=== PATIENT | male | born 1940 | race Caucasian/White ===

== ENCOUNTER 2017-07-30 11:02 | Outpatient (CLI) | payer SELFPAY ==
--- NOTE | 2017-07-30 12:52 | RAD ---
RADIOGRAPH LEFT RIBS 4 VIEWS: DATE: 07/30/17. HISTORY: A 77-year-old male with persistent posttraumatic left rib pain after fall 2 weeks ago. COMPARISON: None. FINDINGS: There is diffuse osteopenia. There is a compression fracture of the T12 vertebral body with asymmetr ic greater compression of the right side than the left, visualized on frontal projection. There is d iffuse osteopenia. No displaced rib fracture is identified. IMPRESSION: 1. Compression fracture of T12, of unknown age. 2. No left rib fracture identified. POS: DIOR
== END 2017-07-30 11:03 | disposition home or self-care (01) ==
LOC: MERGE 11:02 → RAD 11:02
PROVIDERS: ATTEND Physical Medicine & Rehabilitation
DX: R07.81 Pleurodynia (principal); Z87.81 Personal history of (healed) traumatic fracture

== ENCOUNTER 2019-12-11 19:01 | Inpatient (IN) | payer MEDICARE, OTHER ==
--- NOTE | 2019-12-11 20:41 | RAD ---
Radiograph left hip 2 views: 12/11/2019 8:25 PM HISTORY: 79-year-old male with persistent left hip pain after fall 2 weeks ago. COMPARISON: None available FINDINGS: There is a femoral neck fracture with impaction and foreshortening, comminution, and approximately on e third bone width lateral displacement of main distal fragment. These are all visualized on the frontal view. The lateral view is nondiagnostic because of overlap of multiple structures. IMPRESSION: Traumatic, displaced, comminuted fracture of the left femoral neck
[2019-12-11 20:46] LABS: #Eosinphils 0.3 thou/uL (0.0-0.7); #Lymphocytes 1.5 thou/uL (1.20-3.40); #Monocytes 1.3 thou/uL (0.11-0.59); #Neutrophils 10.4 thou/uL (1.40-6.50); %Basophils 0.2 % (0.0-1.0); %Eosinophils 2.2 % (0.0-10.0); %Lymphocytes 11.2 % (21.0-51.0); %Monocytes 9.6 % (0.0-10.0); %Neutrophils 76.8 % (42.0-75.0); Hemoglobin 12.7 g/dL (14.0-18.0); Mean Corpuscular HGB CONC 31.9 g/dL (32.0-36.0); Mean Corpuscular Hemoglobin 27.9 pg (27.0-31.0); Mean Corpuscular Volume 87.5 fL (78.0-98.0); Mean Platelet Volume 8.6 fL (7.4-10.4); Platelet Count 220 thou/uL (130-400); RBC Distribution Width 14.7 % (11.5-14.5); Red Blood Cell (RBC) Count 4.57 mill/uL (4.70-6.10); White Blood Cell (WBC) Count 13.5 thou/uL (4.8-10.8)
[2019-12-11 21:07] LABS: Anion Gap 13 mmol/L (10-20); BUN (Urea Nitrogen) 17 mg/dL (8.4-25.7); Calc. Creatinine Clearance 0 mL/min (70-130); Calcium 8.3 mg/dL (7.8-10.44); Carbon Dioxide 25 mmol/L (23-31); Chloride 104 mmol/L (98-107); Estimated GFR-MDRD 90; Glucose 178 mg/dL (83-110); Potassium 3.6 mmol/L (3.5-5.1); Sodium 138 mmol/L (136-145)
--- NOTE | 2019-12-11 21:12 | CT ---
CT BRAIN NONCONTRAST: DATE: 12/11/2019 HISTORY: 79-year-old male status post acute head trauma from fall FINDINGS: There is no evidence of acute intra-axial or extra-axial hemorrhage. There is no midline shift or any other mass effect. There is no extra-axial fluid collection. There is no evidence of obstructive hydrocephalus. Calvarium is intact. There is diffuse brain parenchymal volume loss. There are low att enuation areas in the white matter. These are nonspecific, but in a patient of this age, they are probably chronic ischemic white matter changes due to microvascular atherosclerosis. There are multip le tiny and small old lacunar infarctions in the bilateral cerebellar hemispheres, left thalamus, bilateral basal ganglia, and bilateral caudate nuclei. No interval change overall compared to 019. IMPRESSION: 1) No acute intracranial findings. 2) advanced involutional changes and high-grade chronic ischemic white matter changes. 3) multiple small and tiny old lacunar infarctions in deep luna nuclei and bilateral cerebellum
--- NOTE | 2019-12-11 21:14 | CT ---
CT CERVICAL SPINE NONCONTRAST: DATE: 12/11/2019 HISTORY: cervical trauma. 8-year-old male status post fall FINDINGS: There are no jumped or perched facets. There is no evidence of acute fracture. The vertebral body hei ghts are maintained. There is no prevertebral soft tissue swelling. There are degenerative disc changes and facet osteoarthrosis. IMPRESSION: 1) Cervical spondylosis. 2) no evidence of acute fracture or acute traumatic subluxation.
[2019-12-11 21:46] LABS: Bilirubin Negative (Negative); Blood, Urine Negative (Negative); Clarity Clear (Clear); Glucose, Urine (Dipstick) Normal (Negative); Ketone, Urine Negative (Negative); Leukocyte Negative Leu/uL (Negative); Nitrite Negative (Negative); Protein, Urine (Dipstick) 20 mg/dL (Neg-Trace); Specific Gravity, Urine 1.027 (1.002-1.036); Urobilinogen 3 mg/dL (Less than 2)
--- NOTE | 2019-12-11 22:11 | RAD ---
RADIOGRAPH CHEST 1 VIEW: DATE: 12/11/2019 HISTORY: 79-year-old male for preoperative clearance FINDINGS: The thoracic aorta is very tortuous and ectatic, unchanged since 11/15/2018. There is no evidence of a irspace density, pulmonary edema, or pneumothorax. The lateral costophrenic angles are not effaced. There are multiple left anterolateral displaced lower rib fractures with callus. These ribs are poorl y visualized on the prior study. IMPRESSION: 1) No acute pulmonary findings. 2) severe tortuosity and ectasia of thoracic aorta. Cannot rule out aneurysm. 3) multiple healing left rib fractures
[2019-12-11 22:17] LABS: Magnesium 1.7 mg/dL (1.6-2.6); Phosphorus 2.9 mg/dL (2.3-4.7)
[2019-12-11 22:18] LABS: INR-International Normal Ratio 1.3; PTT 48.9 sec (22.9-36.1); Prothrombin Time 16.5 sec (12.0-14.7)
[2019-12-11] MEDS ORDERED: Dextrose 50% Abboject 50 ML SYRINGE SLOW IVP PRN (22:22)
[2019-12-11] MEDS ORDERED: Morphine 2 MG/ML VIAL SLOW IVP PRN (22:22)
[2019-12-11] MEDS ORDERED: hydrALAZINE 20 MG/ML VIAL SLOW IVP PRN (22:22)
[2019-12-11] MEDS ORDERED: Dextrose 5% in Water 1,000 ML IV PRN (22:22)
[2019-12-11] MEDS ORDERED: Insulin Regular 300 UNITS/3 ML VIAL SC PRN ×2 (22:22)
[2019-12-11] MEDS ORDERED: Ondansetron PF 4 MG/2 ML Vial IVP PRN (22:22)
[2019-12-11] MEDS ORDERED: Acetaminophen/Codeine 30-300mg Tablet PO PRN (22:28)
[2019-12-11] MEDS ORDERED: Sodium Chloride 0.9% 1,000 ML IV SCH (22:45)
[2019-12-11] MEDS ORDERED: Magnesium 2 GM/50 ML 2 GM in Premix Bag 1 BAG IVPB SCH (22:45)
[2019-12-11] MEDS ORDERED: Potassium Phosphate 15 MMOL in Sodium Chloride 0.9% 250 ML 250 ML IVPB SCH (23:00)
[2019-12-12] MEDS ORDERED: Ipratropium Oral Inhaler INH PRN (00:13)
[2019-12-12] MEDS: Acetaminophen 325 MG TAB PO SCH ×4 (00:19→17:58)
--- NOTE | 2019-12-12 01:12 | HP ---
TRAUMA SURGEON: Baljeet Gamboa MD CONSULTING PHYSICIAN: Francisco J Alvarenga MD HISTORY OF PRESENT ILLNESS: The patient is a 79-year-old male, presented to the Emergency Department via EMS after he reported pain in his hip at his longterm. At that time, an x-ray was completed demonstrating a right femoral neck fracture, at which time, he was transferred here. Nursing at the facility reports no recent known trauma. They are unsure the exact mechanism and duration of the fracture. The patient has a history of dementia and CVA. He does not remember any fall and states his pain is controlled besides when moving. The patient reports he is usually able to stand and get in the wheelchair. He states he is able to ambulate, but does not. At the time of my evaluation, he had no complaints and no pain. He denied shortness of breath, chest pain, nausea, vomiting, diarrhea, and cough. The patient is on Plavix. He has a history of atrial fibrillation and CVA. REVIEW OF SYSTEMS: All additional 10-point review of systems negative except as indicated above. PAST MEDICAL HISTORY: CVA, hypertension, diabetes, BPH, COPD, dementia, insomnia, diabetic neuropathy, osteoarthritis, depression, Alzheimer's, macular degeneration, dysphagia, hyperlipidemia, and coronary artery disease. PAST SURGICAL HISTORY: Only documented history is previous back surgery. The patient is not oriented to medical history. SOCIAL HISTORY: The patient is a previous smoker. He lives in a longterm. MEDICATIONS: Include; 1. Scopolamine. 2. Tylenol. 3. Norvasc. 4. Plavix. 5. Glucagon. 6. Zofran. 7. Bisacodyl suppository. 8. Loperamide. 9. Milk of magnesia. 10. Namenda. 11. Gabapentin. 12. Atorvastatin. 13. Lipitor. 14. Zoloft. 15. Carvedilol. 16. Pantoprazole. 17. Alendronate sodium. 18. Aricept. 19. Flomax. 20. Vitamin D. 21. Vitamin C. 22. Zinc. 23. Guaifenesin liquid. 24. Keppra. 25. Hydroxyzine. 26. Ibuprofen. ALLERGIES: NO KNOWN DRUG ALLERGIES. PHYSICAL EXAMINATION: VITAL SIGNS: Temperature 98.8, pulse 70, respirations 18, oxygen saturation 100% on room air, and blood pressure 143/82. PRIMARY SURVEY: Airway intact. Adequate breath sounds bilaterally. 2+ pulses in the bilateral radials, femorals, and DPs. No lacerations, bruising, or external bleeding. SECONDARY SURVEY: HEAD: Normocephalic and atraumatic. No gross palpable skull deformities or tenderness. EYES: Pupils 3 to 2, equal, round, and reactive to light bilaterally. ENT: No signs of trauma. C-SPINE: No step-offs or deformity. Nontender. C-collar not in place. CHEST: Nontender. No crepitus. No abrasions or ecchymosis. Equal movement. ABDOMEN: Soft, nontender, and nondistended. PELVIS: Stable to palpation and nontender. No abrasions or ecchymosis. RECTAL: Deferred. GENITOURINARY: Deferred. EXTREMITIES: No gross deformities. No abrasions or ecchymosis noted. 2+ pulses in the bilateral radials, femorals, and DPs. BACK/SPINE: No step-offs or deformities or tenderness to palpation of the thoracic or lumbar spine. NEUROLOGIC: A 5/5 strength in bilateral entry clerk and right lower extremity. The patient has 3/5 strength and plantar flexion and dorsiflexion on the left lower extremity. GCS is 14 to 15, -1 for confusion occasionally. LABORATORY FINDINGS: White count 13.5, hemoglobin 12.7, hematocrit 40.0, and platelets 220. INR 1.3 and PTT 48.9. Sodium 138, potassium 3.6, chloride 104, bicarb 25, BUN 17, creatinine 0.83, glucose 178, phosphorus 2.9, and magnesium 1.7. Troponin 0.012. UA is negative for infection and blood. DIAGNOSTIC FINDINGS: CT of the brain demonstrates no acute intracranial findings advanced evolutional changes and high-grade chronic ischemic white matter changes, multiple small and tiny old lacunar infarcts and deep luna nuclei in bilateral cerebellum. X-ray of the left hip demonstrate traumatic displaced comminuted fracture of the left femoral neck. CT of the C-spine demonstrates cervical spondylosis. No evidence of acute fracture or acute traumatic subluxation. Chest x-ray demonstrates no acute pulmonary findings, severe tortuosity and ectasias of thoracic, aorta cannot rule out aneurysm. Multiple healing left rib fractures. ASSESSMENT: 1. Status post unknown trauma. 2. Left femoral neck fracture. 3. History of cerebrovascular accident, hypertension, diabetes, benign prostatic hyperplasia, chronic obstructive pulmonary disease, dementia, insomnia, diabetic neuropathy, depression, dysphagia, coronary artery disease, Alzheimer's disorder, and osteoporosis. PLAN: The patient will be admitted to the Trauma Service and go to the surgical nursing floor. The emergency room has consulted Dr. Alvarenga of Orthopedic Surgery for evaluation. He is considering operative intervention and we will make that determination tomorrow. He will have a diabetic diet that is pureed until midnight, for which he will be n.p.o., normal saline at 75 an hour for a total of 1 L. Replace potassium and phos p.r.n. and scheduled pain control. We will avoid tramadol as the patient is on Keppra. There is concern for possible seizure associated with tramadol. We will start the patient's home medications as clinically indicated. Postoperatively, the patient will likely be able to go back to his long term facility. Job ID: [id number]
[2019-12-12 03:08] LABS: #Eosinphils 0.3 thou/uL (0.0-0.7); #Lymphocytes 2.1 thou/uL (1.20-3.40); #Monocytes 1.2 thou/uL (0.11-0.59); #Neutrophils 7.1 thou/uL (1.40-6.50); %Basophils 0.2 % (0.0-1.0); %Eosinophils 2.9 % (0.0-10.0); %Lymphocytes 19.2 % (21.0-51.0); %Neutrophils 66.6 % (42.0-75.0); Hemoglobin 13.3 g/dL (14.0-18.0); Mean Corpuscular HGB CONC 32.9 g/dL (32.0-36.0); Mean Corpuscular Hemoglobin 28.3 pg (27.0-31.0); Mean Platelet Volume 8.5 fL (7.4-10.4); Platelet Count 217 thou/uL (130-400); RBC Distribution Width 14.9 % (11.5-14.5); White Blood Cell (WBC) Count 10.7 thou/uL (4.8-10.8)
[2019-12-12 03:23] LABS: Troponin I 0.018 ng/mL (< 0.028)
[2019-12-12 03:34] LABS: ALT (SGPT) 8 U/L (8-55); AST (SGOT) 11 U/L (5-34); Albumin 3.1 g/dL (3.4-4.8); Alkaline Phosphatase 97 U/L (40-110); Anion Gap 14 mmol/L (10-20); BUN (Urea Nitrogen) 14 mg/dL (8.4-25.7); Bilirubin, Total 0.7 mg/dL (0.2-1.2); Calc. Creatinine Clearance 100 mL/min (70-130); Calcium 8.3 mg/dL (7.8-10.44); Carbon Dioxide 25 mmol/L (23-31); Chloride 105 mmol/L (98-107); Estimated GFR-MDRD Greater than 90; Globulin 2.8 g/dL (2.4-3.5); Glucose 110 mg/dL (83-110); Magnesium 2.1 mg/dL (1.6-2.6); Potassium 3.7 mmol/L (3.5-5.1); Protein, Total 5.9 g/dL (5.8-8.1); Sodium 140 mmol/L (136-145)
[2019-12-12 03:35] LABS: Phosphorus 3.8 mg/dL (2.3-4.7)
[2019-12-12] MEDS: Ibuprofen 200 MG TAB PO SCH ×2 (07:21→17:58)
[2019-12-12] MEDS ORDERED: Potassium Phosphate 15 MMOL in Sodium Chloride 0.9% 250 ML 250 ML IVPB SCH (07:45)
[2019-12-12] MEDS: Carvedilol 6.25 MG TAB PO SCH (08:47)
[2019-12-12] MEDS: Famotidine/PF 20 mg/2ml Vial SLOW IVP SCH (08:51)
[2019-12-12] MEDS ORDERED: Polyethylene Glycol 3350 17 GM Packet PO SCH (09:00)
[2019-12-12] MEDS: Senokot S 8.6-50 MG TAB PO SCH (09:57)
[2019-12-12] MEDS: Atorvastatin Calcium 40 MG TAB PO SCH (09:57)
--- NOTE | 2019-12-12 10:04 | CON ---
DATE OF CONSULTATION: This is Marco A Petit PA-C dictating a report for Francisco J Alvarenga MD. HISTORY OF PRESENT ILLNESS: We were asked by Trauma to consult on this patient. The patient resides in a fci and was complaining of left hip pain secondary to fall a few weeks ago. X-rays were required. He was brought to our facility with a left hip fracture. Speaking with the patient, he is a little hard to understand, but I asked the patient if he had fallen before and he said "yes", two weeks ago, I said any falls prior to that, and again he said he has fallen. He has had a CVA and some dementia, but he seems to be answering the simple questions fairly well. He mostly is in a wheelchair, but does get up to pivot and stand, looking at the x-ray, it appears fairly old and maybe the fall a few weeks ago re-injured it. He is able to move his left lower extremity fairly well. He can draw his knee up, it is painful, but it is doable. He has good sensations in his feet and pulses. Does not think he has any other injuries. PAST MEDICAL HISTORY: CVA, hypertension, diabetes, BPH, COPD, dementia, insomnia, diabetic neuropathy, currently not bothering him, osteoarthritis, depression, Alzheimer's, macular degeneration, dysphagia, hyperlipidemia, and CAD. PAST SURGICAL HISTORY: Back surgery x2, he states. SOCIAL HISTORY: Resides in a fci. No vices i.e. smoking, drinking, or drugs. CURRENT MEDICATIONS: 1. Scopolamine. 2. Tylenol. 3. Norvasc. 4. Plavix. 5. Glucagon. 6. Zofran. 7. Bisacodyl suppository. 8. Loperamide. 9. Milk of magnesia. 10. Namenda. 11. Gabapentin. 12. Atorvastatin. 13. Lipitor. 14. Zoloft. 15. Carvedilol. 16. Pantoprazole. 17. Alendronate sodium. 18. Aricept. 19. Flomax. 20. Vitamin D and C. 21. Zinc. 22. Guaifenesin liquid p.r.n. 23. Keppra. 24. Hydroxyzine. 25. Ibuprofen. ALLERGIES: REMARKABLY NONE. FAMILY HISTORY: For this particular incident, grossly noncontributory. REVIEW OF SYSTEMS: Positive for left hip and mild pelvic pain. Denies any other positive review of systems. PHYSICAL EXAMINATION: HEENT: Scalp atraumatic. Face symmetric. Tongue midline. NECK: Supple. Trachea midline. EXTREMITIES: Upper extremities; equal size, shape, symmetry, normal bulk and tone. He has equal quarter doper strength. Sensations are good. Bilateral lower extremities, he can actually draw both legs up pretty well. Left is a little bit slower than the right due to the hip fracture, but he is moving it. He is wiggling all of his toes well. DP and PT pulses intact. VITAL SIGNS: Respirations 16. GENERAL: No acute distress. PELVIS: Definite pain with rocking on the left side. ASSESSMENT: Left hip fracture, appears to be old. PLAN: We will get physical therapy and occupational therapy. Our initial impression is not to do any surgery. We will talk further with the patient after evaluation with physical therapy. Again, the patient recalls fall two weeks ago and some falls prior to that. He does not complain of any other injuries during my physical exam. I have discussed the case and gone over the films with Dr. Alvarenga and currently, no surgical intervention is planned. Job ID: [id number]
[2019-12-12] MEDS: levETIRAcetam 500 MG TAB PO SCH (12:38)
[2019-12-12 12:42] LABS: SARS-CoV-2 MS2 Positive; SARS-CoV-2 N Gene Negative; SARS-CoV-2 S Gene Negative; SARS-CoV-2 by NAA Not Detected (NotDetected); SARS-CoV-2 orf1ab Negative
--- NOTE | 2019-12-12 18:15 | PRG ---
DATE OF SERVICE: 12/12/2019 SUBJECTIVE: The patient was seen during morning rounds. Awake, alert, in no distress. The patient is hospital day #2, status post right femoral neck fracture. Currently, the patient denies any pain at this time. The patient has been n.p.o. with maintenance fluids overnight due to possible surgical indication. OBJECTIVE: VITAL SIGNS: Temperature 98.0, pulse 66, respirations 18, SpO2 of 96% on room air, and blood pressure 135/87. GENERAL: Elderly male, dysphagia, awake, alert, in no distress. HEENT: Head is atraumatic and normocephalic. RESPIRATORY: Good inspiratory and expiratory efforts, breath sounds are clear bilateral. CARDIAC: Regular rate and regular rhythm. ABDOMEN: Soft, nontender, and nondistended. EXTREMITIES: No gross deformities, neurovascularly intact x4. LABORATORY DATA: WBC 10.7, RBC 4.70, hemoglobin 13.3, hematocrit 40.4, platelets 217. Sodium 140, potassium 3.7, chloride 105, BUN 14, creatinine 0.76, estimated GFR greater than 90, glucose 110, calcium 8.3, phosphorus 3.8, magnesium 2.1, albumin 3.1. Troponin indeterminate. DIAGNOSTICS: There are no new diagnostics to review today. IMPRESSION: 1. Status post unknown trauma. 2. Left femoral neck fracture, treated nonoperatively. 3. History of cerebrovascular accident, hypertension, diabetes, benign prostatic hyperplasia, chronic obstructive pulmonary disease, dementia, insomnia, diabetic neuropathy, depression, dysphagia, coronary artery disease, Alzheimer's disorder, and osteoporosis. PLAN: Continue supportive care and pain regimen. PT and OT. Orthopedic Surgery plans nonoperative management. Diabetic diet. We will attempt to get the patient placed back to the senior care today or tomorrow. The plan was discussed with the attending. Job ID: [id number]
[2019-12-12] MEDS ORDERED: Scopolamine 1.5 mg/72 hour Patch TOP SCH (23:59)
[2019-12-13] MEDS: levETIRAcetam 500 MG TAB PO SCH (00:10)
[2019-12-13] MEDS: Ibuprofen 200 MG TAB PO SCH ×3 (00:21→15:00)
[2019-12-13] MEDS: Senokot S 8.6-50 MG TAB PO SCH (00:21)
[2019-12-13] MEDS: Acetaminophen 325 MG TAB PO SCH ×2 (00:21→06:08)
[2019-12-13] MEDS: Famotidine/PF 20 mg/2ml Vial SLOW IVP SCH ×3 (03:26→20:04)
--- NOTE | 2019-12-13 03:33 | PRG ---
DATE OF SERVICE: 12/12/2019 SUBJECTIVE: The patient was seen this evening during rounds. He was sitting up in bed. Nursing reported increased oral secretions. On evaluation of home med recs, the patient does have a scopolamine patch continuously at his [place] [facility] that was replaced. Mouth was suctioned. Respiratory sounds demonstrated upper airway saliva. No concerns for heart failure at this time. The patient is saturating 98% to 100% on room air. OBJECTIVE: VITAL SIGNS: Temperature 96.8, pulse 76, respirations 24, oxygen saturation 98% on room air, blood pressure 134/86. GENERAL: Well-appearing elderly male, sitting up in bed, awake and alert with no signs of acute distress. PULMONARY: Equal chest rise and fall. Clear breath sounds at the bases. The patient has upper airway type sounds from increase in saliva. CARDIAC: Regular rate and rhythm. GI: Abdomen is soft, nontender, nondistended. EXTREMITIES: 2+ pulses in all extremities. Gross motor and sensation are intact. No significant swelling noted. ASSESSMENT: 1. Status post fall with delayed presentation. 2. Left femoral neck fracture, nonoperative. 3. History of cerebrovascular accident, hypertension, diabetes, benign prostatic hypertrophy, chronic obstructive pulmonary disease, coronary artery disease, Alzheimer's disorder, insomnia, diabetic neuropathy, dysphagia, and depression. PLAN: Continue current diet with modifications. Start home amlodipine. Start Lovenox tomorrow for DVT prophylaxis. He is pending discharge to his [facility] facility. Restart home scopolamine. Job ID: [id number] MTDD
[2019-12-13] MEDS ORDERED: Furosemide 40 MG/4 ML VIAL ONE (04:04)
[2019-12-13] MEDS ORDERED: Furosemide 40 MG/4 ML VIAL SLOW IVP SCH (04:15)
[2019-12-13 04:43] LABS: Actual Bicarbonate (HCO3a) 25.4 mEq/L (22-28); Base Excess (BEa) -0.3 mEq/L (-2.0 to +3.0); CO2 Tension 45.3 mmHg (35.0-45.0); Hemoglobin (Hb) 14.7 g/dL (14.0-18.0); O2 Tension (PaO2), arterial 60.2 mmHg (> 70.0); Potassium - ABG Lab 3.91 mmol/L (3.70-5.30); pH, Arterial 7.37 (7.35-7.45)
[2019-12-13 04:47] LABS: ALV-art Gradient 168.375 (0-20); Puncture Site RR
[2019-12-13 05:36] LABS: Hemoglobin 14.5 g/dL (14.0-18.0); Mean Corpuscular HGB CONC 32.4 g/dL (32.0-36.0); Mean Corpuscular Hemoglobin 28.2 pg (27.0-31.0); Mean Corpuscular Volume 87.3 fL (78.0-98.0); Mean Platelet Volume 8.2 fL (7.4-10.4); Platelet Count 264 thou/uL (130-400); RBC Distribution Width 14.9 % (11.5-14.5); Red Blood Cell (RBC) Count 5.13 mill/uL (4.70-6.10); White Blood Cell (WBC) Count 20.4 thou/uL (4.8-10.8)
[2019-12-13 05:39] LABS: Anion Gap 15 mmol/L (10-20); BUN (Urea Nitrogen) 10 mg/dL (8.4-25.7); Calc. Creatinine Clearance 101 mL/min (70-130); Calcium 8.7 mg/dL (7.8-10.44); Carbon Dioxide 25 mmol/L (23-31); Chloride 102 mmol/L (98-107); Estimated GFR-MDRD Greater than 90; Glucose 131 mg/dL (83-110); Magnesium 1.8 mg/dL (1.6-2.6); Phosphorus 4.2 mg/dL (2.3-4.7); Potassium 3.9 mmol/L (3.5-5.1); Sodium 138 mmol/L (136-145)
[2019-12-13 05:45] LABS: Troponin I 0.013 ng/mL (< 0.028)
[2019-12-13] MEDS ORDERED: Magnesium 2 GM/50 ML 2 GM in Premix Bag 1 BAG IVPB SCH (06:00)
[2019-12-13 06:10] LABS: Band 9 % (5-11); Eosinophils 1 % (0-10); Lymphocytes 6 % (21-51); MDiff Complete? YES; Monocytes 4 % (0-10)
--- NOTE | 2019-12-13 06:30 | PDOC.EVN ---
Event Note - Event Note Event Note: Trauma called to bedside to eval patient due to low SpO2 and increased oral secretions. Patient with altered metal status and sig amount of posterior oral secretions. Not following commands. NT and oral suctioned. Placed on NRB mask and O2 increased to 95-98%. Continued to have increased work of breathing. CXR, [place], 40mg IV lasix, lab studies, echo, and EKG ordered for acute flash pulmonary edema . Resp tech called to bedside to place patient on BiPAP. Moved to CCU as no IMCU beds available. ABG completed in IMCU demonstrated appropriate oxygenation and ventilation. Patient on BiPAP with FiO2 of 40% sating 95-100% and pulling 500-1000 tital volume. EKG demonstrated unchanged BBB and new Afib with HR 60s to 80s on monitor. Trop downtrended from admission. Will reeval UOP and give additional IV lasix in next 6-8hrs as needed to continue dieresis. Fu echo this AM. Mg replaced. Dr. Morris was contacted and updated about patients change. Sonja Shabazz PA-C Trauma Surgery
[2019-12-13] MEDS ORDERED: Potassium Phosphate 15 MMOL in Sodium Chloride 0.9% 100 ML IVPB SCH (08:00)
[2019-12-13] MEDS ORDERED: Senokot S 8.6-50 MG TAB PO PRN (08:58)
[2019-12-13] MEDS ORDERED: Polyethylene Glycol 3350 17 GM Packet PO PRN (08:58)
[2019-12-13] MEDS ORDERED: Famotidine 20 MG TAB PO SCH (09:00)
[2019-12-13] MEDS: Carvedilol 6.25 MG TAB PO SCH (09:00)
[2019-12-13] MEDS ORDERED: Furosemide 20 MG/2 ML VIAL SLOW IVP SCH (09:00)
[2019-12-13] MEDS: Amlodipine 10 MG TAB PO SCH (09:04)
[2019-12-13] MEDS: Clopidogrel Bisulfate 75 MG TAB PO SCH (09:05)
[2019-12-13] MEDS: Atorvastatin Calcium 40 MG TAB PO SCH (09:05)
[2019-12-13] MEDS ORDERED: Rocuronium Bromide 10 MG/ML (10ML VIAL) ONE (09:24)
[2019-12-13] MEDS ORDERED: Ventilator Sedation Protocol 1 EACH FS SCH (09:40)
[2019-12-13] MEDS ORDERED: Morphine 2 MG/ML VIAL SLOW IVP PRN (09:50)
[2019-12-13] MEDS ORDERED: DISCONTINUE PREVIOUS NARCOTIC PAIN MEDICATIONS AND BENZODIAZEPINES FS SCH (09:50)
[2019-12-13] MEDS ORDERED: Propofol BOLUS 1,000 MG/100 ML VIAL IV PRN (09:50)
[2019-12-13] MEDS ORDERED: Lorazepam 2 MG/ML VIAL SLOW IVP PRN (09:50)
[2019-12-13] MEDS ORDERED: fentaNYL Citrate/PF 2,000 MCG in Sodium Chloride 0.9% 60 ML IV SCH (09:50)
[2019-12-13] MEDS ORDERED: Propofol 1,000 MG/100 ML VIAL IV PRN (09:50)
[2019-12-13] MEDS ORDERED: Fentanyl BOLUS 250 ML IVPB PRN (09:50)
[2019-12-13] MEDS: Enoxaparin Sodium 40 MG/0.4 ML SYRINGE SC SCH (10:02)
[2019-12-13] MEDS: levETIRAcetam In NaCl (Iso-Os) 1,000 MG in Premix Bag 1 BAG IVPB SCH ×2 (10:06→20:04)
--- NOTE | 2019-12-13 10:09 | RAD ---
PORTABLE CHEST: Date: 12/13/2019 HISTORY: Respiratory failure. CCU follow-up. COMPARISON: 12/11/2019. FINDINGS: Exam is limited due to poor positioning. There is cardiomegaly with vascular congestion. Hazy interst itial and alveolar opacities suggest interstitial edema. No confluent consolidation. IMPRESSION: Cardiomegaly with congestive change. Hazy peripheral densities could represent edema or hazy infiltra ted. Not significantly changed from 12/11/2019. POS: AGW
[2019-12-13] MEDS: Sodium Chloride 0.9% 1,000 ML IV SCH ×2 (10:20→18:19)
--- NOTE | 2019-12-13 10:40 | RAD ---
PORTABLE CHEST: Date: 12/13/2019 HISTORY: Assess ET tube placement. Comparison film with earlier this morning. FINDINGS: ET tube is in place with tip above josue. A NG tube is in place, which appears to pass through the E G junction. The lungs remain aerated without evidence of focal infiltrate. Mild cardiomegaly with pro minent aorta. Numerous old left anterolateral rib fractures which show callus. Deformity of the distal right clavicle from old displaced fracture. IMPRESSION: No acute change in appearance of the lung castaneda. POS: AGW
[2019-12-13 10:53] LABS: Bilirubin Negative (Negative); Blood, Urine 1+ (Negative); Clarity Clear (Clear); Glucose, Urine (Dipstick) Normal (Negative); Ketone, Urine Negative (Negative); Leukocyte Negative Leu/uL (Negative); Nitrite Negative (Negative); Protein, Urine (Dipstick) Negative (Neg-Trace); Specific Gravity, Urine 1.012 (1.002-1.036); Squamous Epithelial 0-3 HPF (0-3); Urobilinogen Normal mg/dL (Less than 2)
[2019-12-13] MEDS ORDERED: Sodium Chloride 0.9% 500 ML IV SCH (11:00)
[2019-12-13] MEDS ORDERED: Sodium Chloride 0.9% 1,000 ML IV SCH ×2 (11:00→18:15)
[2019-12-13 11:01] LABS: Bacteria/HPF 1+ HPF (None Seen)
[2019-12-13 11:02] LABS: Urine Culture Reflex Yes Yes
[2019-12-13 11:05] LABS: Actual Bicarbonate (HCO3a) 25.7 mEq/L (22-28); Base Excess (BEa) -0.6 mEq/L (-2.0 to +3.0); Calcium, Ionized (arterial) 1.17 mmol/L (1.12-1.30); Carboxyhemoglobin (COHb) 0.6 gm% (0.0-3.0); Hemoglobin (Hb) 14.9 g/dL (14.0-18.0); Potassium - ABG Lab 3.76 mmol/L (3.70-5.30); pH, Arterial 7.35 (7.35-7.45)
[2019-12-13 11:16] LABS: O2 Tension (PaO2), arterial 54.7 mmHg (> 70.0); Puncture Site A
--- NOTE | 2019-12-13 12:25 | CT ---
CT HEAD WITHOUT CONTRAST: Date: 12/13/2019 INDICATION: Declining mental status. Comparison made to recent head CT of 12/11/2019. FINDINGS: Moderate cortical atrophy and chronic ischemic change again noted. There is no evidence of acute inte rval change. No mass, edema, hemorrhage, or evidence of acute infarct. IMPRESSION: Stable head CT. POS: AGW
[2019-12-13] MEDS: Acetaminophen 325 MG TAB PER TUBE SCH ×3 (12:27→23:03)
[2019-12-13] MEDS: Scopolamine 1.5 mg/72 hour Patch TOP SCH (14:12)
[2019-12-13] MEDS: Ibuprofen 100 MG/5 ML UDCUP PO SCH ×2 (14:59→21:03)
--- NOTE | 2019-12-13 20:59 | PRG ---
DATE OF SERVICE: 12/13/2019 SUBJECTIVE: The patient was seen during morning rounds with Dr. Morris in the critical care unit. The patient is currently on BiPAP for hypoxemia and suspected flash pulmonary edema last night. The patient was given Lasix overnight. The patient is hospital day #3, status post right femoral neck fracture, treated nonoperatively. The patient has been altered overnight, and he is normally alert and oriented. The patient's blood pressure mildly hypotensive and not awake enough to tolerate BiPAP at this time. The patient appears hypoxic and with respiratory failure, decision was made to intubate the patient. The patient was preoxygenated prior to induction with etomidate and rocuronium. SpO2 remained in the mid 90s during intubation attempt. The patient was intubated with videolaryngoscope by Dr. Morris and placed an 8-0 cuffed ET tube. Positive color metric change. The cords were visualized, and secretions were suctioned before and after. Tube was secured at 23 cm at the lips. Cuff was inflated and bilateral breath sounds present, and no epigastric sounds. Portable chest x-ray was obtained with good placement. The patient was placed on full mechanical ventilatory support. OBJECTIVE: VITAL SIGNS: Blood pressure 91/59, SpO2 94% on BiPAP, FiO2 of 50%, heart rate 83, respirations 20, and temperature 97.8. GENERAL: Elderly male, tachypneic, respiratory distress. RESPIRATORY: Scattered rhonchi, tachypneic, labored. CARDIAC: Regular rate, regular rhythm. ABDOMEN: Soft, nontender, nondistended. EXTREMITIES: No deficits. LABORATORY DATA: WBC 20.4, RBC 5.13, hemoglobin 14.5, hematocrit 44.8, and platelets 264. Sodium 138, potassium 3.9, chloride 102, carbon dioxide 25, BUN 10, creatinine 0.75, estimated GFR greater than 90, glucose 131, magnesium 1.8, phosphorus 4.2, calcium 8.7, BNP 414.5, and troponin 0.013. DIAGNOSTIC DATA: Chest x-ray before intubation, impression; cardiomegaly with congestive change, hazy peripheral densities could represent edema or hazy infiltrates. Postintubation chest x-ray, impression; ET tube in place at the tip above the josue. Lungs remain aerated without any evidence of focal infiltrate. Mild cardiomegaly with prominent aorta. Brain CT, impression; no mass, edema, hemorrhage, or evidence of acute infarction. Echocardiogram, impression; left ventricular size is normal, ejection fraction was visually estimated at 55% to 60%, left atrium was mildly dilated. No evidence of mitral regurgitation. No evidence of mitral valve stenosis. No aortic stenosis or regurgitation. Mild tricuspid regurgitation. IMPRESSION: 1. Status post unknown trauma. 2. Left femoral neck fracture, treated nonoperatively. 3. Aspiration pneumonia. 4. Acute hypoxic respiratory failure. 5. Altered mental status, likely due to hypoxia. 6. History of cerebrovascular accident. 7. Hypertension. 8. Diabetes. 9. Benign prostatic hypertrophy. 10. Chronic obstructive pulmonary disease. 11. Dementia. 12. Insomnia. 13. Diabetic neuropathy. 14. Depression. 15. Dysphagia. 16. Coronary artery disease. 17. Alzheimer disease. 18. Osteoporosis. PLAN: Continue full mechanical ventilatory support. Dr. Morris did reach out to family to establish code status. Sedation and pain management. We will panculture patient. Repeat labs in the morning. Replace electrolytes. Maintenance fluids. Normal saline 100 mL an hour. Plan was discussed with Dr. Morris. Job ID: [id number]
[2019-12-13] MEDS ORDERED: Vancomycin HCl 1.75 GM in Sodium Chloride 0.9% 500 ML IVPB SCH (21:45)
[2019-12-13] MEDS: Piperacillin/Tazobactam 3.375 GM in Sodium Chloride 0.9% 100 ML IVPB SCH (23:46)
[2019-12-14] MEDS: Sodium Chloride 0.9% 1,000 ML IV SCH ×3 (01:11→17:32)
[2019-12-14 04:16] LABS: Anion Gap 13 mmol/L (10-20); BUN (Urea Nitrogen) 17 mg/dL (8.4-25.7); Calc. Creatinine Clearance 70 mL/min (70-130); Calcium 7.7 mg/dL (7.8-10.44); Carbon Dioxide 23 mmol/L (23-31); Chloride 106 mmol/L (98-107); Estimated GFR-MDRD 66; Glucose 87 mg/dL (83-110); Potassium 3.8 mmol/L (3.5-5.1); Sodium 138 mmol/L (136-145)
[2019-12-14 04:20] LABS: Band 4 % (5-11); Elliptocytes SLIGHT = 2-5 cells (100X) (0-1/hpf); Hemoglobin 11.7 g/dL (14.0-18.0); Lymphocytes 8 % (21-51); MDiff Complete? YES; Mean Corpuscular Hemoglobin 27.6 pg (27.0-31.0); Mean Corpuscular Volume 86.3 fL (78.0-98.0); Mean Platelet Volume 8.9 fL (7.4-10.4); Monocytes 3 % (0-10); Platelet Count 213 thou/uL (130-400); RBC Distribution Width 14.7 % (11.5-14.5); Red Blood Cell (RBC) Count 4.25 mill/uL (4.70-6.10); White Blood Cell (WBC) Count 17.7 thou/uL (4.8-10.8)
[2019-12-14] MEDS: Acetaminophen 325 MG TAB PER TUBE SCH ×4 (05:05→23:52)
[2019-12-14] MEDS: Piperacillin/Tazobactam 3.375 GM in Sodium Chloride 0.9% 100 ML IVPB SCH ×4 (05:05→23:49)
[2019-12-14] MEDS: Ibuprofen 100 MG/5 ML UDCUP PO SCH ×3 (05:05→21:33)
--- NOTE | 2019-12-14 07:18 | PRG ---
DATE OF SERVICE: 12/13/2019 SUBJECTIVE: The patient was seen this evening during rounds. He was intubated and sedated with no signs of acute distress. Nursing reported the patient has been hemodynamically stable. Urinary output has been marginal. He is status post IV fluid bolus. OBJECTIVE: VITAL SIGNS: Temperature 98.8, pulse 68, respirations 20, oxygen saturation 100% on the ventilator, and blood pressure 107/66. GENERAL: Elderly male, lying in bed, intubated and sedated with no signs of acute distress. PULMONARY: Equal chest rise and fall. Clear breath sounds bilaterally. No signs of acute respiratory distress. CARDIAC: Atrial fibrillation, but rate controlled at a rate of 60s to 80s. ABDOMEN: Soft, nontender, nondistended. EXTREMITIES: Gross motor and sensation are intact in all extremities. No significant swelling noted. : Weeks in place with cyrus-colored urine in bag. ASSESSMENT: 1. Status post fall. 2. Left femoral neck fracture, non-op. 3. Flash pulmonary edema. 4. Aspiration pneumonia. 5. History of cerebrovascular accident. 6. Hypertension. 7. Diabetes. 8. Benign prostatic hypertrophy. 9. Chronic obstructive pulmonary disease. 10. Coronary artery disease. 11. Alzheimer's. 12. Insomnia. 13. Diabetic neuropathy. 14. Dysphagia. 15. Depression. PLAN: Continue mechanical ventilation overnight. Start vancomycin and Zosyn for aspiration pneumonia. Cultures have been sent and are pending results. The patient received 500 mL bolus of 5% albumin and increase IV fluid rate of normal saline to 125 an hour. Continue to closely monitor urinary output. Job ID: [id number]
[2019-12-14 07:23] LABS: Actual Bicarbonate (HCO3a) 22.5 mEq/L (22-28); Base Excess (BEa) -1.5 mEq/L (-2.0 to +3.0); CO2 Tension 35.5 mmHg (35.0-45.0); Calcium, Ionized (arterial) 1.16 mmol/L (1.12-1.30); Carboxyhemoglobin (COHb) 0.2 gm% (0.0-3.0); Hemoglobin (Hb) 12.1 g/dL (14.0-18.0); O2 Tension (PaO2), arterial 85.6 mmHg (> 70.0); Potassium - ABG Lab 3.49 mmol/L (3.70-5.30); pH, Arterial 7.42 (7.35-7.45)
[2019-12-14 07:26] LABS: ALV-art Gradient 155.225 (0-20); Puncture Site RRA
[2019-12-14] MEDS ORDERED: Potassium Chloride 20 MEQ in Premix Bag 1 BAG IVPB SCH ×2 (08:30→08:45)
[2019-12-14] MEDS: Clopidogrel Bisulfate 75 MG TAB PO SCH (09:24)
[2019-12-14] MEDS: Atorvastatin Calcium 40 MG TAB PO SCH (09:24)
[2019-12-14] MEDS: Carvedilol 6.25 MG TAB PO SCH (09:24)
[2019-12-14] MEDS: Famotidine/PF 20 mg/2ml Vial SLOW IVP SCH ×2 (09:25→20:29)
[2019-12-14] MEDS: Enoxaparin Sodium 40 MG/0.4 ML SYRINGE SC SCH (09:25)
[2019-12-14] MEDS: levETIRAcetam In NaCl (Iso-Os) 1,000 MG in Premix Bag 1 BAG IVPB SCH ×2 (09:25→21:24)
[2019-12-14] MEDS: Amlodipine 10 MG TAB PO SCH (09:30)
[2019-12-14] MEDS: Vancomycin HCl 1.25 GM in Sodium Chloride 0.9% 250 ML 250 ML IVPB SCH ×2 (09:54→20:26)
--- NOTE | 2019-12-14 11:00 | RAD ---
PORTABLE CHEST: INDICATIONS: Intubation followup. COMPARISON: 12/13/19 FINDINGS: ET tube and NG tube remain in place. The lungs show mild vascular engorgement. Interstitial and hazy alveolar opacities peripherally appear stable and could represent mild edema. There are small effusio ns which appear stable. The aorta is tortuous and unchanged in appearance. IMPRESSION: NO significant change from yesterday. POS: AGW
[2019-12-15] MEDS: Sodium Chloride 0.9% 1,000 ML IV SCH (04:42)
[2019-12-15 04:46] LABS: Band 4 % (5-11); Eosinophils 2 % (0-10); Hemoglobin 11.7 g/dL (14.0-18.0); Lymphocytes 10 % (21-51); MDiff Complete? YES; Mean Corpuscular HGB CONC 31.6 g/dL (32.0-36.0); Mean Corpuscular Hemoglobin 27.5 pg (27.0-31.0); Mean Corpuscular Volume 86.9 fL (78.0-98.0); Mean Platelet Volume 8.7 fL (7.4-10.4); Monocytes 6 % (0-10); Platelet Count 209 thou/uL (130-400); RBC Distribution Width 14.7 % (11.5-14.5); Red Blood Cell (RBC) Count 4.27 mill/uL (4.70-6.10)
[2019-12-15 04:47] LABS: Anion Gap 12 mmol/L (10-20); BUN (Urea Nitrogen) 13 mg/dL (8.4-25.7); Calc. Creatinine Clearance 95 mL/min (70-130); Calcium 7.7 mg/dL (7.8-10.44); Carbon Dioxide 21 mmol/L (23-31); Chloride 108 mmol/L (98-107); Estimated GFR-MDRD Greater than 90; Glucose 71 mg/dL (83-110); Magnesium 1.8 mg/dL (1.6-2.6); Phosphorus 2.4 mg/dL (2.3-4.7); Potassium 3.6 mmol/L (3.5-5.1); Sodium 137 mmol/L (136-145)
[2019-12-15] MEDS: Acetaminophen 325 MG TAB PER TUBE SCH ×4 (05:19→23:53)
[2019-12-15] MEDS: Piperacillin/Tazobactam 3.375 GM in Sodium Chloride 0.9% 100 ML IVPB SCH ×4 (05:19→23:53)
[2019-12-15] MEDS: Ibuprofen 100 MG/5 ML UDCUP PO SCH ×3 (05:19→21:28)
[2019-12-15] MEDS ORDERED: Magnesium Sulfate 2 GM in Sodium Chloride 0.9% 100 ML IVPB SCH (07:45)
[2019-12-15] MEDS ORDERED: Dextrose 5%-Lactated Ringers 1,000 ML IV SCH (07:45)
[2019-12-15] MEDS ORDERED: Potassium Phosphate 30 MMOL, Magnesium Sulfate 2 GM in Sodium Chloride 0.9% 250 ML IVPB SCH (08:00)
[2019-12-15] MEDS: Famotidine/PF 20 mg/2ml Vial SLOW IVP SCH ×2 (08:05→21:28)
[2019-12-15] MEDS: Enoxaparin Sodium 40 MG/0.4 ML SYRINGE SC SCH (08:05)
[2019-12-15] MEDS: Atorvastatin Calcium 40 MG TAB PO SCH (08:06)
[2019-12-15] MEDS: Amlodipine 10 MG TAB PO SCH (08:06)
[2019-12-15] MEDS: Carvedilol 6.25 MG TAB PO SCH (08:06)
[2019-12-15] MEDS: Clopidogrel Bisulfate 75 MG TAB PO SCH (08:06)
[2019-12-15 08:20] LABS: Vancomycin, Trough 16.7 ug/mL
[2019-12-15] MEDS: levETIRAcetam In NaCl (Iso-Os) 1,000 MG in Premix Bag 1 BAG IVPB SCH ×2 (09:13→21:27)
[2019-12-15] MEDS: Vancomycin HCl 1.25 GM in Sodium Chloride 0.9% 250 ML 250 ML IVPB SCH (09:14)
[2019-12-15] MEDS ORDERED: Furosemide 40 MG/4 ML VIAL SLOW IVP SCH (09:30)
--- NOTE | 2019-12-15 12:38 | PQF ---
CLINICAL DOCUMENTATION CLARIFICATION FORM: Dear Odalys HERRNIG AGACNP-BC Date / Time: 12/15/2019 1210 Please exercise your independent, professional judgment in responding to the clarification form. Clinical indicators are provided on the bottom of this form for your review. Please check appropriate box(es): [ ] Sepsis due to: ASPIRATION PNEUMONIA [ ] Sepsis Not due to: ASPIRATION PNEUMONIA [ ] Severe sepsis with associated acute organ dysfunction: [ ] ACUTE RESPIRATORY FAILURE W/HYPOXIA [x ] Additional/Other: FLASH PULMONARY EDEMA [ ] Septic Shock [ x ] Localized infection without sepsis [ ] Other diagnosis [ ] Unable to determine In addition, please specify: Present on Admission (POA): [ ] Yes [ x ] No [ ] Unable to determine For continuity of documentation, please document condition throughout progress notes and discharge summary. Thank You. To be completed by CDI/Coding staff for physician review: CLINICAL INDICATORS - SIGNS / SYMPTOMS / LABS / RESULTS AND LOCATION IN MR 12/10 WBC 13.5 12/12 WBC 20.4 12/13 WBC 17.7 12/14 WBC 13.0 12/12 EVENT NOTE( TAGHECHIAN) PATIENT WITH ALTERED MENTAL STATUS AND SIG AMOUNT OF POSTERIOR ORAL SECRETIONS. NOT FOLLOWING COMMANDS. 12/13 PN ( PONZIO) THE PATIENT HAS BEEN ALTERED OVERNIGHT, AND HE IS NORMALLY ALERT AND ORIENTED. IMPRESSION: ASPIRATION PNEUMONIA, ACUTE HYPOXIC RESPIRATORY FAILURE, ALTERED MENTAL STATUS, LIKELY DUE TO HYPOXIA, RISK FACTORS / RESULTS AND LOCATION IN MR ADVANCED AGE ( 79), DX ASPIRATION PNEUMONIA, RESPIRATORY DISTRESS W/ HYPOXIA ( PN/TAGHECHIAN) 12/13 TREATMENTS / RESULTS AND LOCATION IN MR SUPPLEMENTAL OXYGEN / MECHANICAL VENTILATION ( 12/12 PRESENT) DAILY CBC ( 12/10 PRESENT) ZOSYN IV ( 12/12 PRESENT ) VANCOMYCIN IV ( 12/12 PRESENT) THANK YOU! CDS Signature: BLAZE FINCH RN Phone #: [phone] Date: 2019 This is a permanent part of the Medical Record [facility]
[2019-12-15 13:56] VITALS: BMI 25.0
--- NOTE | 2019-12-15 15:39 | PRG ---
DATE OF SERVICE: 12/14/2019 This is Jody Cook NP dictating a report for Dr. Morris. SUBJECTIVE: The patient was seen during rounds with Dr. Morris. The patient on full mechanical ventilatory support. The patient did have some low urinary output overnight, in which he was given albumin and IV fluids. The patient currently opens eyes to voice and follows commands. The patient attempted wean off ventilator, but had some apnea when placed on CPAP. OBJECTIVE: VITAL SIGNS: Temperature 98.1, pulse 71, respirations 14, SpO2 of 100% on FiO2 40%. GENERAL: Elderly male, on mechanical ventilatory support, opens eyes spontaneously, follows commands. RESPIRATORY: Good inspiratory and expiratory effort, bilateral breath sounds clear. No wheezing, rales, or rhonchi. CARDIAC: Regular rate and regular rhythm. ABDOMEN: Soft, nontender, nondistended. EXTREMITIES: Moves all extremities. No focal deficits. LABORATORY DATA: WBC 17.7, RBC 4.25, hemoglobin 11.7, hematocrit 36.7, platelets 213. ABG; pH of 7.42, CO2 of 35.5, PO2 of 85.6, base excess -1.5, bicarb 22.5. Sodium 138, potassium 3.8, chloride 106, BUN 17, creatinine 1.08, estimated GFR 66, glucose 87, calcium 7.7, phosphorus 4.0, magnesium 2.0. BNP 195.5. DIAGNOSTICS: Chest x-ray, impression, ET tube and NG tube remain in place. Lungs show mild vascular engorgement. Interstitial and hazy alveolar opacities peripherally appear stable and could represent mild edema. There are small effusions which appear stable. The aorta is torturous and unchanged in appearance. No significant change from yesterday. No growth at 24 hours on urine culture and no growth today on blood culture. IMPRESSION: 1. Status post unknown trauma. 2. Left femoral neck fracture, treated nonoperatively. 3. Aspiration pneumonia. 4. Acute hypoxic respiratory failure, improving. 5. Altered mental status, improved. PLAN: Continue full mechanical ventilatory support. We will decrease sedation and kept p.o. medications orally per OG tube. We will attempt to wean the patient off the ventilator. Continue maintenance IV fluids. Continue to monitor urinary output. Continue antibiotics for positive sputum culture. The plan was discussed with the attending. The patient was examined by Dr. Morris. Job ID: [id number]
--- NOTE | 2019-12-15 16:52 | PRG ---
DATE OF SERVICE: 12/14/2019 SUBJECTIVE: The patient was seen this evening during rounds. He was resting comfortably in bed and asleep. He is intubated and sedated. Sedation has been discontinued as the patient is comfortable on the vent. OBJECTIVE: VITAL SIGNS: Temperature 98.4, pulse 83, respirations 14, oxygen saturation 100% on the ventilator, blood pressure 130/74. GENERAL: Well-appearing elderly male, lying in bed, intubated with no signs of acute distress. PULMONARY: Equal chest rise and fall. No signs of acute respiratory distress. CARDIAC: Regular rate and rhythm. GI: Abdomen is soft, nontender, nondistended. EXTREMITIES: No significant swelling noted. ASSESSMENT: 1. Status post fall. 2. Left femoral neck fracture, nonoperative. 3. Flash pulmonary edema and aspiration pneumonia, resolving. 4. Urinary tract infection, currently on vanc and Zosyn. 5. History of CVA, hypertension, diabetes, BPH, COPD, CAD, Alzheimer's, insomnia, diabetes, diabetic neuropathy, dysphagia, and depression. PLAN: Continue intubation overnight. Continue IV antibiotics. We are pending further results from the patient's respiratory cultures. The patient will likely be extubated tomorrow. If he is not, we will start him on tube feeds. Job ID: [id number]
--- NOTE | 2019-12-15 20:23 | PRG ---
DATE OF SERVICE: 12/15/2019 SUBJECTIVE: Mr. Rodriguez is a 79-year-old man, who is post injury day #3, status post ground-level fall. The patient sustained a left femoral neck fracture, which has been evaluated by Orthopedic Surgery and deemed nonoperative. The patient developed acute flash pulmonary edema with acute respiratory failure, requiring intubation and placement on mechanical ventilator support. Today, he is awake and alert. He moves all extremities. Urinary output is adequate for the patient's age and weight. OBJECTIVE: VITAL SIGNS: Today include blood pressure 135/76, pulse 67, respiratory rate 20, maximum temperature in last 24 hours is 99.1 degrees Fahrenheit, and oxygen saturation 100% on FiO2 of 30% on mechanical ventilator support. HEENT: Pupils are equal, round, and reactive to light and accommodation. NECK: He has no jugular venous distention noted. HEART: Reveals irregular rate and rhythm, but rate controlled. LUNGS: Clear to auscultation bilaterally. Breathing, regular and unlabored. ABDOMEN: Soft, nontender, and nondistended. EXTREMITIES: Reveal 2+ radial and pedal pulses bilaterally. No ankle edema is present. PERTINENT LABORATORY FINDINGS: Today include CBC with 13,000 white blood cells, down from 17,700 yesterday; hemoglobin and hematocrit are stable at 11.7 and 37.1 respectively; and platelet count is 209,000. Metabolic profile; sodium 137, potassium 3.6, chloride is 108, bicarb is 21, BUN is 13, creatinine is 0.78, glucose 71, magnesium 1.8, and phosphorus is 2.4. Microbiology from the respiratory culture on 12/13/2019, is pertinent for moderate gram-positive cocci in pairs and moderate gram-positive rods. IMPRESSION: 1. Post injury day #3, status post ground level fall with left femoral neck fracture, nonoperative. 2. Acute respiratory failure secondary to aspiration pneumonia. The patient is currently on Zosyn and vancomycin. 3. Acute hypomagnesemia. 4. Acute hypophosphatemia. 5. Acute hyperkalemia. PLAN: 1. Correct abnormal electrolytes. 2. We will discontinue the vancomycin and continue with the Zosyn for aspiration pneumonia. 3. The patient will be weaned and extubated as indicated. Total critical care time is 35 minutes. Job ID: [id number]
--- NOTE | 2019-12-16 02:04 | PRG ---
DATE OF SERVICE: 12/15/2019 SUBJECTIVE: The patient was seen this evening during rounds. He was lying in bed, sleeping with no signs of acute distress. Nursing reported no acute events. OBJECTIVE: VITAL SIGNS: Temperature 97.6, pulse 65, respirations 20, oxygen saturation 100% on 2 L nasal cannula, and blood pressure 155/80. GENERAL: Well-appearing elderly male, sitting up in bed, asleep with no signs of acute distress. PULMONARY: Equal chest rise and fall. No signs of acute respiratory distress. ASSESSMENT: 1. Status post mechanical fall from standing. 2. Left femoral neck fracture, nonoperative. 3. Flash pulmonary edema and aspiration pneumonia, resolving. 4. Urinary tract infection. 5. History of cerebrovascular accident, hypertension, diabetes, BPH, chronic obstructive pulmonary disease, coronary artery disease, Alzheimer's, insomnia, diabetic neuropathy, dysphagia, and depression. PLAN: Continue current diet and pain regimen. Continue physical and occupational therapy. Continue Zosyn. The patient will likely be discharged back to his [facility] tomorrow. Job ID: [id number]
[2019-12-16 05:28] LABS: #Eosinphils 0.5 thou/uL (0.0-0.7); #Lymphocytes 1.8 thou/uL (1.20-3.40); #Monocytes 1.1 thou/uL (0.11-0.59); #Neutrophils 8.1 thou/uL (1.40-6.50); %Basophils 0.4 % (0.0-1.0); %Lymphocytes 15.8 % (21.0-51.0); %Monocytes 9.3 % (0.0-10.0); %Neutrophils 70.5 % (42.0-75.0); Hemoglobin 12.8 g/dL (14.0-18.0); Mean Corpuscular HGB CONC 30.8 g/dL (32.0-36.0); Mean Corpuscular Volume 87.6 fL (78.0-98.0); Mean Platelet Volume 8.7 fL (7.4-10.4); Platelet Count 245 thou/uL (130-400); RBC Distribution Width 14.9 % (11.5-14.5); Red Blood Cell (RBC) Count 4.72 mill/uL (4.70-6.10); White Blood Cell (WBC) Count 11.4 thou/uL (4.8-10.8)
[2019-12-16 05:50] LABS: Anion Gap 14 mmol/L (10-20); BUN (Urea Nitrogen) 10 mg/dL (8.4-25.7); Calc. Creatinine Clearance 102 mL/min (70-130); Calcium 8.1 mg/dL (7.8-10.44); Carbon Dioxide 20 mmol/L (23-31); Chloride 107 mmol/L (98-107); Estimated GFR-MDRD Greater than 90; Glucose 94 mg/dL (83-110); Magnesium 1.9 mg/dL (1.6-2.6); Phosphorus 2.6 mg/dL (2.3-4.7); Potassium 3.8 mmol/L (3.5-5.1); Sodium 137 mmol/L (136-145)
[2019-12-16] MEDS: Acetaminophen 325 MG TAB PER TUBE SCH ×3 (06:10→18:29)
[2019-12-16] MEDS: Piperacillin/Tazobactam 3.375 GM in Sodium Chloride 0.9% 100 ML IVPB SCH (06:11)
[2019-12-16] MEDS: Ibuprofen 100 MG/5 ML UDCUP PO SCH (06:11)
[2019-12-16] MEDS ORDERED: levETIRAcetam 500 MG TAB PO SCH (09:00)
[2019-12-16 11:06] LABS: Neutrophil 78 % (42-75)
[2019-12-16] MEDS: Atorvastatin Calcium 40 MG TAB PO SCH (11:41)
[2019-12-16] MEDS: Amoxicillin/Potassium Clav 875 MG TAB PO SCH ×2 (11:42→21:49)
[2019-12-16] MEDS: Clopidogrel Bisulfate 75 MG TAB PO SCH (11:42)
[2019-12-16] MEDS: Amlodipine 10 MG TAB PO SCH (11:42)
[2019-12-16] MEDS: Carvedilol 6.25 MG TAB PO SCH (11:42)
[2019-12-16] MEDS: Famotidine/PF 20 mg/2ml Vial SLOW IVP SCH ×2 (11:43→21:49)
[2019-12-16] MEDS: Enoxaparin Sodium 40 MG/0.4 ML SYRINGE SC SCH ×2 (11:43→11:54)
[2019-12-16 12:14] LABS: Neutrophil 85 % (42-75)
[2019-12-16 12:56] LABS: Neutrophil 79 % (42-75)
[2019-12-16] MEDS: levETIRAcetam 500 mg/5 ml Oral Solution PO SCH ×2 (13:31→21:50)
--- NOTE | 2019-12-16 15:35 | PRG ---
DATE OF SERVICE: 12/16/2019 SUBJECTIVE: Mr. Rodriguez is a 79-year-old male, post injury day #4, status post ground-level fall with a left femoral neck fracture, evaluated by Dr. Alvarenga of Orthopedics, nonoperative. The patient is usually in a wheelchair. He did develop flash pulmonary edema requiring mechanical ventilation while in his hospital stay. He is currently extubated and doing well on the surgery [place]. Awaiting return to [facility]. He is on room air. No other changes. He has been on Zosyn for possible aspiration pneumonia. OBJECTIVE: VITAL SIGNS: Temperature is 97.4, blood pressure is 147/90, heart rate is 79, breathing 18 times per minute, saturating 99% on room air. GENERAL: A 79-year-old male who is confused, does look at providers, but denies to have a conversation. HEENT: Normocephalic and atraumatic. NECK: Trachea is midline. RESPIRATORY: Equal rise and fall. Bilateral breath sounds clear to auscultation in upper and lower lobes bilaterally. CARDIOVASCULAR: Regular rate. Strong pulses. ABDOMEN: Soft and nontender. PELVIS: Stable. MUSCULOSKELETAL: He does move his extremities and has warm extremities. PSYCHIATRIC: Somewhat impulsive. NEUROLOGIC: Alert, eyes open, and he is at his reported baseline mental status. LABORATORY DATA: From today, white blood cell count 11.4, platelets are 245, hemoglobin and hematocrit are 12.8 and 41.4 respectively. Sodium is 138, potassium is 3.8, chloride is 107, CO2 is 20, BUN is 10, creatinine 0.73, glucose is 94, calcium is 8.1, phosphorus is 2.6, magnesium is 1.9. Urine culture has not grown. Blood cultures are negative thus far. ASSESSMENT: 1. Post injury day #4 status post fall with left femoral neck fracture. 2. Acute respiratory failure requiring mechanical ventilation, completely resolved. 3. Concern for aspiration pneumonia. 4. Acute electrolyte abnormalities, currently being corrected. 5. History of Alzheimer's dementia. PLAN: 1. Awaiting placement. 2. Change to Augmentin 875 b.i.d. for a 7-day course. 3. Correct electrolytes as needed. 4. Continue all other supportive care. 5. Hope to discharge today or tomorrow based on insurance approval. 6. Continue to work with PT as able. 7. Encourage diet. 8. The patient was evaluated with Dr. Anoop Morris. 9. There is no family at the bedside to update today. Coordinate care with the bedside RN. Job ID: [id number]
[2019-12-16] MEDS: Ibuprofen 200 MG TAB PO SCH ×2 (16:49→21:49)
[2019-12-16] MEDS: Scopolamine 1.5 mg/72 hour Patch TOP SCH (16:50)
[2019-12-17] MEDS: Acetaminophen 325 MG TAB PER TUBE SCH ×5 (00:23→23:45)
--- NOTE | 2019-12-17 01:27 | PRG ---
DATE OF SERVICE: 12/16/2019 SUBJECTIVE: This is a 79-year-old male status post mechanical fall resulting in left femoral neck fracture. Per my evaluation this evening, the patient was not conversant. Bedside nursing reported no concerns. OBJECTIVE: VITAL SIGNS: Reviewed and as documented in the electronic medical record. The patient is afebrile, intermittently mildly hypertensive. GENERAL: Resting in bed, in no acute distress. PULMONARY: Normal work of breathing. Symmetric rise. NEURO: Reportedly at baseline, remains impulsive. ASSESSMENT: As documented in progress note dated 12/16/2019. PLAN: Continue supportive care as ordered. The patient did have electrolyte replacement earlier today. A.m. labs. Job ID: [id number]
[2019-12-17] MEDS: Ibuprofen 200 MG TAB PO SCH ×3 (05:30→21:13)
[2019-12-17 07:55] LABS: Anion Gap 12 mmol/L (10-20); BUN (Urea Nitrogen) 8 mg/dL (8.4-25.7); Calc. Creatinine Clearance 111 mL/min (70-130); Calcium 8.4 mg/dL (7.8-10.44); Carbon Dioxide 26 mmol/L (23-31); Chloride 104 mmol/L (98-107); Estimated GFR-MDRD Greater than 90; Glucose 90 mg/dL (83-110); Potassium 3.7 mmol/L (3.5-5.1); Sodium 138 mmol/L (136-145)
[2019-12-17] MEDS: Enoxaparin Sodium 40 MG/0.4 ML SYRINGE SC SCH (09:36)
[2019-12-17] MEDS: Amoxicillin/Potassium Clav 875 MG TAB PO SCH ×2 (09:36→21:12)
[2019-12-17] MEDS: levETIRAcetam 500 mg/5 ml Oral Solution PO SCH ×2 (09:36→21:12)
[2019-12-17] MEDS: Amlodipine 10 MG TAB PO SCH (09:37)
[2019-12-17] MEDS: Clopidogrel Bisulfate 75 MG TAB PO SCH (09:37)
[2019-12-17] MEDS: Famotidine/PF 20 mg/2ml Vial SLOW IVP SCH ×2 (09:37→21:12)
[2019-12-17] MEDS: Atorvastatin Calcium 40 MG TAB PO SCH (09:37)
[2019-12-17] MEDS: Carvedilol 6.25 MG TAB PO SCH (09:37)
--- NOTE | 2019-12-17 16:57 | PRG ---
DATE OF SERVICE: 12/17/2019 This is Jody Cook NP dictating a report for Anoop Morris DO. SUBJECTIVE: The patient is a 79-year-old male, post injury day #5, status post ground level fall. The patient is hospital day #5, status post left femoral neck fracture which is nonoperative. The patient is currently sleeping, but arouses easily. The patient voices no complaints or concerns at this time. The patient had no overnight events. OBJECTIVE: VITAL SIGNS: Temperature 98.0, pulse 73, respirations 16, SpO2 of 99% on 2 L nasal cannula, blood pressure 154/93. GENERAL: Elderly male, resting comfortably, arouses easily, in no distress. HEENT: Head is atraumatic and normocephalic. RESPIRATORY: No respiratory distress. Respirations are even and nonlabored. CARDIOVASCULAR: Regular rate. Regular rhythm. EXTREMITIES: Moves all extremities, neurovascularly intact x4. LABORATORY DATA: Sodium 138, potassium 3.7, chloride 104, carbon dioxide 26, BUN 8, creatinine 0.67. Estimated GFR greater than 90, glucose 98. DIAGNOSTIC DATA: No new diagnostics. ASSESSMENT: 1. Post injury day #5, status post fall with left femoral neck fracture. 2. Acute respiratory failure requiring mechanical ventilation, and resolved. 3. Concern for aspiration pneumonia. 4. History of Alzheimer's dementia, cerebrovascular accident, hypertension, diabetes, chronic obstructive pulmonary disease, insomnia, dysphagia, and depression. PLAN: Continue supportive care and pain management. Continue diet as tolerated. The patient is pending placement back to the group home with at least hourly physical therapy. Pending insurance approval for this physical therapy daily. The patient was examined by Dr. Morris during morning rounds. Job ID: [id number]
[2019-12-18 05:44] LABS: Anion Gap 12 mmol/L (10-20); BUN (Urea Nitrogen) 9 mg/dL (8.4-25.7); Calc. Creatinine Clearance 111 mL/min (70-130); Calcium 8.6 mg/dL (7.8-10.44); Carbon Dioxide 26 mmol/L (23-31); Chloride 103 mmol/L (98-107); Estimated GFR-MDRD Greater than 90; Glucose 83 mg/dL (83-110); Magnesium 1.7 mg/dL (1.6-2.6); Phosphorus 2.6 mg/dL (2.3-4.7); Potassium 3.6 mmol/L (3.5-5.1); Sodium 137 mmol/L (136-145)
[2019-12-18] MEDS: Acetaminophen 325 MG TAB PER TUBE SCH ×4 (06:24→23:44)
[2019-12-18] MEDS: Ibuprofen 200 MG TAB PO SCH ×3 (06:24→21:27)
[2019-12-18] MEDS: Enoxaparin Sodium 40 MG/0.4 ML SYRINGE SC SCH (09:27)
[2019-12-18] MEDS: levETIRAcetam 500 mg/5 ml Oral Solution PO SCH ×2 (09:27→21:28)
[2019-12-18] MEDS: Amoxicillin/Potassium Clav 875 MG TAB PO SCH ×2 (09:28→21:27)
[2019-12-18] MEDS: Atorvastatin Calcium 40 MG TAB PO SCH (09:28)
[2019-12-18] MEDS: Clopidogrel Bisulfate 75 MG TAB PO SCH (09:29)
[2019-12-18] MEDS: Amlodipine 10 MG TAB PO SCH (09:29)
[2019-12-18] MEDS: Carvedilol 6.25 MG TAB PO SCH (09:29)
[2019-12-18] MEDS: Famotidine 20 MG TAB PO SCH ×2 (09:31→21:28)
--- NOTE | 2019-12-18 17:34 | PRG ---
DATE OF SERVICE: 12/18/2019 SUBJECTIVE: Patient was seen during morning rounds, awake, alert, no distress. The patient did eat all of his breakfast this morning. The patient states he is ready to go back home. The patient did have a fall out of bed last night, in which he did not sustain any obvious injuries. The patient had a mild abrasion to his left knee. No obvious swelling or deformity. The patient's pain has been well controlled. OBJECTIVE: VITAL SIGNS: Temperature 97.8, pulse 74, respirations 16, SpO2 of 97% on 2 L nasal cannula, blood pressure 107/61. GENERAL: Elderly male, awake, alert, no distress, lying in bed. HEENT: Head is atraumatic and normocephalic. Mucous membranes moist. RESPIRATORY: Good inspiratory and expiratory effort. No respiratory distress. CARDIAC: Regular rate and regular rhythm. EXTREMITIES: Moves all extremities, neurovascularly intact x4. LABORATORY DATA: Sodium 137, potassium 3.6, chloride 103, creatinine 0.67, estimated GFR greater than 90, glucose 83, calcium 8.6, phosphorus 2.6, magnesium 1.7. DIAGNOSTICS DATA: There is no new diagnostics to review today. ASSESSMENT: 1. Post injury day #6 status post fall with left femoral neck fracture, treated nonoperatively. 2. Acute respiratory failure requiring mechanical ventilation, resolved. 3. Concern for aspiration pneumonia. 4. History of Alzheimer dementia, cerebrovascular accident, hypertension, diabetes, chronic obstructive pulmonary disease, insomnia, dysphagia, and depression. PLAN: Continue supportive care and pain regimen. Continue diet as tolerated. Continue PT and OT. The patient is pending insurance approval for placement back to his long term with physical therapy. The patient is ready for discharge at this time. Job ID: [id number]
[2019-12-18] MEDS: Cyclobenzaprine 10 MG TAB PO PRN (21:27)
[2019-12-19] MEDS: Acetaminophen 325 MG TAB PER TUBE SCH ×3 (05:20→18:17)
[2019-12-19] MEDS: Ibuprofen 200 MG TAB PO SCH ×2 (05:20→14:31)
[2019-12-19 08:03] VITALS: TEMP 97.7
[2019-12-19] MEDS: Amoxicillin/Potassium Clav 875 MG TAB PO SCH (08:49)
[2019-12-19] MEDS: Famotidine 20 MG TAB PO SCH (08:49)
[2019-12-19] MEDS: Amlodipine 10 MG TAB PO SCH (08:49)
[2019-12-19] MEDS: Atorvastatin Calcium 40 MG TAB PO SCH (08:49)
[2019-12-19] MEDS: Enoxaparin Sodium 40 MG/0.4 ML SYRINGE SC SCH (08:50)
[2019-12-19] MEDS: Carvedilol 6.25 MG TAB PO SCH (08:50)
[2019-12-19] MEDS: Clopidogrel Bisulfate 75 MG TAB PO SCH (08:51)
[2019-12-19] MEDS: levETIRAcetam 500 mg/5 ml Oral Solution PO SCH (08:56)
[2019-12-19] MEDS ORDERED: Saccharomyces boulardii 250 MG CAP PO SCH (09:00)
[2019-12-19] MEDS: Ibuprofen 100 MG/5 ML UDCUP PO SCH (14:28)
[2019-12-19] MEDS: Scopolamine 1.5 mg/72 hour Patch TOP SCH (14:33)
[2019-12-19 16:03] VITALS: BP 145/94
[2019-12-19] MEDS: Cyclobenzaprine 10 MG TAB PO PRN (17:41)
--- NOTE | 2019-12-20 13:51 | EKG ---
Test Reason : Blood Pressure : / mmHG Vent. Rate : 070 BPM Atrial Rate : 046 BPM P-R Int : 000 ms QRS Dur : 136 ms QT Int : 476 ms P-R-T Axes : 000 267 003 degrees QTc Int : 514 ms Atrial fibrillation with premature ventricular or aberrantly conducted complexes Right bundle branch block Inferior infarct , age undetermined Abnormal ECG Confirmed by ROSI MONTEMAYOR M.D. ([id number]), supervising editor trailer ALENA WATTERS ([id number]) on 12/20/2019 1:51:33 PM Referred By: Confirmed By:ROSI MONTEMAYOR M.D.
== END 2019-12-19 19:15 | DRG 535 ==
LOC: ERS 19:01 → SURG B 22:28 → CCU 12-13 04:36 → SURG B 12-15 18:54
PROVIDERS: ADMIT Surgery; ATTEND Surgery
PROC: 5A09357 Assistance with Respiratory Ventilation, Less than 24 Consecutive Hours, Continuous Positive Airway Pressure (ICD-10-PCS; principal; 2019-12-13)
PROC: 0BH18EZ Insertion of Endotracheal Airway into Trachea, Via Natural or Artificial Opening Endoscopic (ICD-10-PCS; 2019-12-13)
PROC: 5A1945Z Respiratory Ventilation, 24-96 Consecutive Hours (ICD-10-PCS; 2019-12-13)
DX: S72.002A Fracture of unspecified part of neck of left femur, initial encounter for closed fracture (principal); J96.01 Acute respiratory failure with hypoxia; J69.0 Pneumonitis due to inhalation of food and vomit; J81.0 Acute pulmonary edema; N39.0 Urinary tract infection, site not specified; I69.354 Hemiplegia and hemiparesis following cerebral infarction affecting left non-dominant side; I48.91 Unspecified atrial fibrillation; M19.90 Unspecified osteoarthritis, unspecified site; R29.6 Repeated falls; G30.9 Alzheimer's disease, unspecified; F02.80 Dementia in other diseases classified elsewhere, unspecified severity, without behavioral disturbance, psychotic disturbance, mood disturbance, and anxiety; J44.9 Chronic obstructive pulmonary disease, unspecified; N40.0 Benign prostatic hyperplasia without lower urinary tract symptoms; I10 Essential (primary) hypertension; F32.9 Major depressive disorder, single episode, unspecified; E11.40 Type 2 diabetes mellitus with diabetic neuropathy, unspecified; H35.30 Unspecified macular degeneration; E78.5 Hyperlipidemia, unspecified; I25.10 Atherosclerotic heart disease of native coronary artery without angina pectoris; W18.30XA Fall on same level, unspecified, initial encounter; I95.9 Hypotension, unspecified; G47.00 Insomnia, unspecified; M81.0 Age-related osteoporosis without current pathological fracture; B96.89 Other specified bacterial agents as the cause of diseases classified elsewhere; E83.42 Hypomagnesemia; E83.39 Other disorders of phosphorus metabolism; E87.5 Hyperkalemia; Z20.828 Contact with and (suspected) exposure to other viral communicable diseases; S80.212A Abrasion, left knee, initial encounter; Z87.891 Personal history of nicotine dependence; Z88.5 Allergy status to narcotic agent; Z79.01 Long term (current) use of anticoagulants; Z79.899 Other long term (current) drug therapy; Z79.84 Long term (current) use of oral hypoglycemic drugs
CPT/HCPCS: 36415; 36416; 51701; 70450; 71045; 72125; 80048; 80053; 80202; 81001; 81003; 82805; 83735; 83880; 84100; 84443; 84484; 85007; 85025; 85027; 85610; 85730; 87040; 87070; 87086; 87205; 87635; 93005; 93010; 93306; 94002; 94003; 94640; 94660; G0390; J1650; J1815; J1940; J1953; J2543; J3010; J3370; J3475; J3480; J3490; J7030; J7050; J7620; P9045; S0028; U0003